=== PATIENT | female | born 1955 | race Caucasian/White ===

== ENCOUNTER 2018-12-13 05:46 | Day surgery (SDC) | payer OTHER ==
[~2018-12-13] VITALS: Ht 167.6 cm; Wt 99.1 kg
[~2018-12-13 05:46] MED LIST: ADV250 IH; ALBU8.5H8 IH; ASCO500 PO; BUSP10TA23 PO; ESOM20CA31 PO; FLUT16H NASAL; INSLAN SQ; LAMO100 PO; METF-960 PO; MONT10TA21 PO; MULT-1251 PO; SODIUM CHLORIDE 0.9% 1,000 ML IV ONE; TIOT4MIS2 IH
[2018-12-13] MEDS: SODIUM CHLORIDE 0.9% 1,000 ML IV ONE (06:56)
[2018-12-13 06:59] LABS: GLUCOMETER DEV NAME(LOC) SDS.; GLUCOSE,POINT OF CARE 120 MG/DL (70-110)
[2018-12-13] MEDS: MethylPREDNISolone SOD SUCC 125 MG/2 ML VIAL IVP ONE (08:49)
[2018-12-13] MEDS ORDERED: MethylPREDNISolone SOD SUCC 125 MG/2 ML VIAL ONE (08:49)
[2018-12-13 10:14] LABS: GLUCOMETER DEV NAME(LOC) SDS.; GLUCOSE,POINT OF CARE 126 MG/DL (70-110)
[2018-12-13] MEDS ORDERED: LIDOCAINE/PF 2% 5 ML VIAL INJ ONE (12:00)
[2018-12-13] MEDS ORDERED: PROPOFOL 1% 20 ML VIAL IVP ONE (12:00)
[2018-12-13] MEDS ORDERED: OXYGEN THERAPY IH SCH (20:00)
== END 2018-12-13 10:00 | disposition home or self-care (01) ==
LOC: SURGERY 05:46
PROVIDERS: ATTEND Internal Medicine Critical Care Medicine
DX: J38.4 Edema of larynx (principal); B37.0 Candidal stomatitis; J84.111 Idiopathic interstitial pneumonia, not otherwise specified; J98.09 Other diseases of bronchus, not elsewhere classified; J98.8 Other specified respiratory disorders; J44.9 Chronic obstructive pulmonary disease, unspecified; I10 Essential (primary) hypertension; E11.9 Type 2 diabetes mellitus without complications; F32.9 Major depressive disorder, single episode, unspecified; F41.8 Other specified anxiety disorders; I70.0 Atherosclerosis of aorta; F10.21 Alcohol dependence, in remission; Z79.4 Long term (current) use of insulin; Z79.84 Long term (current) use of oral hypoglycemic drugs; Z88.0 Allergy status to penicillin; Z91.018 Allergy to other foods; Z87.891 Personal history of nicotine dependence; Z72.89 Other problems related to lifestyle; Z90.49 Acquired absence of other specified parts of digestive tract; Z87.09 Personal history of other diseases of the respiratory system; Z79.899 Other long term (current) drug therapy
CPT/HCPCS: 31623; 31624; 71045; 82962; 87015; 87070; 87101; 87205; 87206; 87220; 88108; 88312; 93005; J2704; J2930; J3490; J7030 ×2